=== PATIENT | female | born 1955 | race Caucasian/White ===

== ENCOUNTER → 2017-03-12 | Outpatient (CLI) | payer BC ==
[~2017-03-12] MED LIST: ATEN50TA8 PO; DICL-201 PO; FLX10 PO; HYDC25 PO; LISI40TA PO; POTA20TA16 PO
--- NOTE | 2017-03-12 12:57 | MAMMOGRAPHY REPORT ---
UNILATERAL RIGHT DIGITAL DIAGNOSTIC MAMMOGRAM TOMOSYNTHESIS WITH CAD: 03/12/2017 CLINICAL HISTORY: History of ultrasound-guided core needle biopsy of a right 6:00 breast mass Decembe r 2015 which yielded granulomatous mastitis, here for short interval follow-up. The patient reports she has a history of sarcoidosis. The patient reports no current complaints. TECHNIQUE: Breast tomosynthesis in addition to standard 2D mammography was performed. Current study was also evaluated with a Computer Aided Detection (CAD) system. Right CC and MLO 2-D and tomosynthe sis images were obtained. COMPARISON: Comparison is made to exams dated: 08/05/2016 ultrasound biopsy, 08/05/2016 mammogram, 1 09/29/2015 mammogram, 07/29/2016 ultrasound, 07/20/2016 mammogram, and 07/15/2015 mammogram - [facility]. BREAST COMPOSITION: There are scattered areas of fibroglandular density in the right breast. FINDINGS: A small 4 mm mass with an associated biopsy marker clip is again noted in the right 6:00 b reast anteriorly. The mass is stable compared to the prior July 2016 exam, and was previously bi opsied and yielded granulomatous mastitis. Given the stability in size and given the benign patholog y, the mass is considered benign. The remainder of the right breast is stable compared to prior exam s, without suspicious masses, calcifications, or areas of architectural distortion noted. IMPRESSION: ACR BI-RADS CATEGORY 2: BENIGN The small right 6:00 breast mass is stable compared to the July 2016 exam, and was previously bio psied and yielded granulomatous mastitis. Given the stability and benign pathology, the mass is cons idered benign. There is no mammographic evidence of malignancy. Return to annual mammogram screening schedule is recommended, due July 2017. The patient has been verbally notified of the results. Approximately 10% of breast cancers are not detected with mammography. A negative mammographic report should not delay biopsy if a clinically suggestive mass is present. Ally Moran M.D. /:03/12/2017 10:30:55 Fishing Rod Assembler: Madalyn LADD(Sheyla)(Katelin), [facility] letter sent: Normal 1/2 BI-RADS Code: ACR BI-RADS Category 2: Benign
== END | disposition home or self-care (01) ==
LOC: C.MAMM 09:56
PROVIDERS: ATTEND Family Medicine
DX: N61.0 Mastitis without abscess (principal); R92.8 Other abnormal and inconclusive findings on diagnostic imaging of breast; N63 Unspecified lump in breast

== ENCOUNTER → 2017-08-26 | Outpatient (CLI) | payer OTHER ==
--- NOTE | 2017-08-27 15:08 | MAMMOGRAPHY REPORT ---
BILATERAL DIGITAL SCREENING MAMMOGRAM TOMOSYNTHESIS WITH CAD: 08/26/2017 TECHNIQUE: Breast tomosynthesis in addition to standard 2D mammography was performed. Current study was also evaluated with a Computer Aided Detection (CAD) system. COMPARISON: Comparison is made to exams dated: 03/12/2017 mammogram, 08/05/2016 mammogram, 08/05/2016 ultrasound biopsy, 07/29/2016 mammogram, 07/29/2016 ultrasound, and 07/20/2016 mammogram - [facility]. BREAST COMPOSITION: There are scattered areas of fibroglandular density in both breasts. FINDINGS: No suspicious masses, calcifications, or areas of architectural distortion are noted in ei ther breast. There has been no significant interval change compared to prior exams. A biopsy marker clip is again noted within the right 6:00 anterior breast. Asymmetry in the left upper outer quadran t is stable compared to multiple prior exams. IMPRESSION: ACR BI-RADS CATEGORY 2: BENIGN There is no mammographic evidence of malignancy. A 1 year screening mammogram is recommended. The pa tient will receive written notification of the results. Approximately 10% of breast cancers are not detected with mammography. A negative mammographic report should not delay biopsy if a clinically suggestive mass is present. Ally Moran M.D. ah/:08/26/2017 15:52:18 Cupola Charger Insulation: Edna LOPEZ)(Katelin), [facility] [address] letter sent: Normal 1/2 BI-RADS Code: ACR BI-RADS Category 2: Benign
== END | disposition home or self-care (01) ==
LOC: C.MAMM 15:22
PROVIDERS: ATTEND Family Medicine
DX: Z12.31 Encounter for screening mammogram for malignant neoplasm of breast (principal)